=== PATIENT | female | born 1980 | race Two or more races ===

== ENCOUNTER 2022-10-05 05:31 | Emergency (ER) | payer OTHER ==
[~2022-10-05] VITALS: Ht 160 cm; Wt 96.2 kg
[2022-10-05] MEDS ORDERED: DUI500 PO (06:27)
== END 2022-10-05 06:46 | disposition home or self-care (01) ==
LOC: ER 05:31
DX: H66.93 Otitis media, unspecified, bilateral (principal); Z88.8 Allergy status to other drugs, medicaments and biological substances